=== PATIENT | female | born 1990 | race Caucasian/White ===

== ENCOUNTER 2021-01-28 11:16 | Inpatient (IN) | payer OTHER ==
[~2021-01-28] VITALS: Ht 175.3 cm; Wt 69.9 kg
[2021-01-28 12:19] LABS: HCT 39.4 % (37.0-47.0); HGB 13.6 g/dl (12.5-16.0); MCH 31.8 pg (25.0-31.0); MCHC 34.5 g/dL (32.0-36.0); MCV 92.1 fL (78.0-100.0); RBC 4.28 M/uL (4.20-5.40); RDW 15.2 % (11.5-14.0)
[2021-01-28 15:41] LABS: BILIRUBIN NEGATIVE (NEGATIVE); BLOOD 1+ Ery/uL (NEGATIVE); CLARITY CLEAR (CLEAR); COLOR YELLOW (YELLOW); GLUCOSE (U) NORMAL (NORMAL); LEUKOCYTES NEGATIVE Leu/uL (NEGATIVE); NITRITE NEGATIVE (NEGATIVE); PROTEIN TRACE (LOW) mg/dL (NEGATIVE); SPECIFIC GRAVITY >=1.030 (1.001-1.030)
[2021-01-28 15:51] LABS: BACTERIA TRACE
[2021-01-29 06:54] LABS: HCT 33.8 % (37.0-47.0); HGB 11.7 g/dl (12.5-16.0); MCH 32.2 pg (25.0-31.0); MCHC 34.6 g/dL (32.0-36.0); MCV 93.1 fL (78.0-100.0); MPV 11.1 fL (6.0-9.5); RBC 3.63 M/uL (4.20-5.40); RDW 15.1 % (11.5-14.0); WBC 23.2 K/uL (4.0-10.5)
[2021-01-30] MEDS ORDERED: IBUPROFEN800 M1 PO (12:58)
[2021-01-30] MEDS ORDERED: PRENATAL FORMU1 EACH PO (12:58)
[2021-01-30] MEDS ORDERED: COLACE100 MG PO (12:58)
[2021-01-30] MEDS ORDERED: FEOSOL325 MG PO (12:58)
== END 2021-01-30 12:45 | disposition home or self-care (01) | DRG 805 ==
LOC: FOD 11:16 → FOB 11:20 → FOD 12:11 → FOB 12:12
PROVIDERS: ADMIT Obstetrics & Gynecology
PROC: 10E0XZZ Delivery of Products of Conception, External Approach (ICD-10-PCS; principal; 2021-01-28)
DX: O24.429 Gestational diabetes mellitus in childbirth, unspecified control (principal); O41.1230 Chorioamnionitis, third trimester, not applicable or unspecified; Z37.0 Single live birth; U07.1 COVID-19; O98.52 Other viral diseases complicating childbirth; O99.02 Anemia complicating childbirth; Z3A.39 39 weeks gestation of pregnancy; O69.81X0 Labor and delivery complicated by cord around neck, without compression, not applicable or unspecified
CPT/HCPCS: 36415; 81001; 82009; 82947; 84112; 86850; 86900; 86901; J0290; J0456; J1580; J2001; J2274; J3010; J7050; J7120; J7121; U0002